=== PATIENT | male | born 1975 | race Caucasian/White ===

== ENCOUNTER 2022-04-11 08:45 | Outpatient (REF) | payer OTHER, SELFPAY ==
[2022-04-11 11:42] LABS: Estimated Average Glucose 114 mg/dL; Hemoglobin A1C 151.4315 umol/L; Hemoglobin A1c % 5.6 %
[2022-04-11 12:09] LABS: Alanine Aminotransferase 67 U/L (0-40); Albumin Level 4.6 g/dL (3.5-5.0); Alkaline Phosphatase 65 U/L (39-117); Anion Gap 19 (12-20); Aspartate Amino Transferase 35 U/L (5-37); Bilirubin Total 0.7 mg/dL (0.0-1.0); Blood Urea Nitrogen 12 mg/dL (9-16); Carbon Dioxide 26 mmol/L (22-29); Chloride 101 mmol/L (96-108); Estimated Glomerular Filt Rate > 60; Glucose Random 91 mg/dL (60-115); Potassium 4.6 mmol/L (3.3-5.1); Sodium 141 mmol/L (135-145); Total Protein 7.2 g/dL (6.5-8.0)
== END 2022-04-11 08:46 | disposition home or self-care (01) ==
LOC: HO.MANLDS 08:45
PROVIDERS: Visit Provider Physician Assistant
DX: R73.01 Impaired fasting glucose (principal)
CPT/HCPCS: 36415; 80053; 83036